=== PATIENT | male | born 1940 | race Hispanic/Latino ===

== ENCOUNTER 2018-01-20 23:13 | Inpatient (IN) | payer MEDICARE, BC ==
[2018-01-20] MEDS ORDERED: Sodium Chloride 0.9% 1,000 ML IV STA (23:38)
--- NOTE | 2018-01-20 23:43 | ED PDOC ---
Arrival/HPI - General Chief Complaint: Flu-like Symptoms Time Seen by Provider: 01/20/18 23:37 - History of Present Illness Narrative History of Present Illness (Text): 77 y/o M c PMHx HTN, asthma p/w fever x 1 day. Reports cough productive of clear /yellow sputum. Denies current dyspnea, body aches, nausea, vomiting, dysuria, abdominal pain, rash, recent travel. at home with cough as well. Past Medical History - Cardiac Hx Cardiac Arrhythmia: Yes - Pulmonary Hx Asthma: Yes - Musculoskeletal/Rheumatological Hx Falls: No Other/Comment: pt has dupuytren's syndrome and has had 8 sx's to both hands including bilateral hand sx's for trigger finger and bilateral carpal tunnel - Genitourinary/Gynecological Other/Comment: on flomax for frequency - Psychiatric Hx Depression: No Hx Emotional Abuse: No Hx Physical Abuse: No Hx Substance Use: No - Surgical History Hx Cholecystectomy: Yes Other/Comment: bilateral inguinal hernia sx's - Suicidal Assessment Feels Threatened In Home Enviroment: No Family/Social History Family/Social History: No Known Family HX Smoking Status: Former Smoker Hx Alcohol Use: Yes (social) Hx Substance Use: No Hx Substance Use Treatment: No Allergies/Home Meds Allergies/Adverse Reactions: Allergies No Known Allergies Allergy (Verified 04/13/13 09:44) Home Medications: Home Meds Medication Instructions Recorded Confirmed Carvedilol [Coreg] 6.25 mg PO BID 01/20/18 01/20/18 Review of Systems - Physician Review All systems were reviewed & negative as marked: Yes - Review of Systems Cardiovascular: absent: Chest Pain Gastrointestinal: absent: Vomiting Physical Exam - Physical Exam Narrative Physical Exam (Text): Gen: NAD Head: NC Eyes: No scleral icterus ENT: MMM. No pharyngeal erythema or exudates. Neck: Supple. No nuchal rigidity. Chest: No tenderness CV: Tachycardic Lungs: CTA b/l Abd: Soft, NT Back: No CVA tenderness Extremities: No swelling or tenderness Skin: No rash Neuro: Alert, no focal deficit Vital Signs Temp Pulse Resp BP Pulse Ox 01/21/18 03:49 99.2 F 96 H 95 H 107/53 L 100 01/21/18 02:48 99.6 F 98 H 18 126/60 96 01/21/18 02:13 100.0 F H 99 H 18 124/61 95 01/21/18 00:54 99.6 F 01/21/18 00:52 101.4 F H 101 H 12 127/72 97 01/20/18 23:54 102.9 F H 01/20/18 23:29 102.9 F H 116 H 21 116/90 97 Medical Decision Making ED Course and Treatment: EKG Sinus tachycardia, 123 bpm, no ST elevations, PACs CXR no acute disease. Patient with persistent fever and tachycardia, will admit for continued hydration, antibiotics. UA shows blood and moderate bacteria. Dr. Maxwell covering for Dr. Garcia accepts to his service. - Lab Interpretations Lab Results: 01/20/18 23:45 01/20/18 23:45 Lab Results 01/21/18 00:13: Urine Color Yellow, Urine Appearance Clear, Urine pH 5.5, Ur Specific [place] 1.025, Urine Protein Trace H, Urine Glucose (UA) Negative, Urine Ketones Trace H, Urine Blood Moderate H, Urine Nitrate Negative, Urine Bilirubin Negative, Urine Urobilinogen 0.2, Ur Leukocyte Esterase Negative, Urine RBC 5 - 10, Urine WBC 0 - 2, Ur Epithelial Cells 3 - 4, Urine Bacteria Mod , Urine Other Mucus 01/20/18 23:45: Sodium 131 L, Chloride 97 L, Potassium 4.4, Carbon Dioxide 26, Anion Gap 14, BUN 15, Creatinine 0.9, Est GFR ( Amer) > 60, Est GFR (Non- Af Amer) > 60, Random Glucose 136 H, Calcium 9.2, Total Bilirubin 0.9, AST 35, ALT 30, Alkaline Phosphatase 63, Total Protein 7.4, Albumin 4.1, Globulin 3.3, Albumin/Globulin Ratio 1.2 01/20/18 23:45: pO2 38, VBG pH 7.39, VBG pCO2 47.0, VBG HCO3 28.5 H, VBG Total CO2 29.9 H, VBG O2 Sat (Calc) 80.1 H, VBG Base Excess 2.8 H, VBG Potassium 4.4, Sodium 132.0, Chloride 99.0, Glucose 140 H, Lactate 1.3, FiO2 21.0, Venous Blood Potassium 4.4 01/20/18 23:45: WBC 13.9 H, RBC 4.01, Hgb 12.8 L, Hct 36.8 L, MCV 91.8, MCH 31.9 , MCHC 34.8, RDW 12.8, Plt Count 181, MPV 10.2, Gran % 79.5 H, Lymph % (Auto) 9.1 L, [place] % (Auto) 10.8 H, Eos % (Auto) 0.4 L, Baso % (Auto) 0.2, Gran # 11.08 H, Lymph # (Auto) 1.3, [place] # (Auto) 1.5 H, Eos # (Auto) 0.1, Baso # (Auto ) 0.03 01/20/18 23:36: Influenza Typ A,B (EIA) Negative for flu a/b - RAD Interpretation Radiology Orders: 01/20/18 23:38 CHEST TWO VIEWS (PA/LAT) [RAD] Stat - Medication Orders Current Medication Orders: Ceftriaxone Sodium (Rocephin 1 Gram Ivpb) 1 gm in 100 mls @ 100 mls/hr IVPB STAT STA PRN Reason: Protocol Stop: 01/21/18 04:46 Last Admin: 01/21/18 03:59 Dose: 100 mls/hr eMAR Start Stop Document 01/21/18 03:59 RG (Rec: 01/21/18 04:03 [id number] Intravenous Solution Start Date 01/21/18 Start Time 03:59 Discontinued Medications Acetaminophen (Tylenol 325mg Tab) 650 mg PO STAT STA Stop: 01/20/18 23:39 Last Admin: 01/20/18 23:54 Dose: 650 mg MAR Pain/Vitals Document 01/20/18 23:54 RG (Rec: 01/20/18 23:55 [id number] Vitals Temperature (97.6 F-99.6 F) 102.9 F Temperature Source Oral Re-Assess: MAR Pain/Vitals Document 01/21/18 00:54 RG (Rec: 01/21/18 03:51 [id number]) Vitals Temperature (97.6 F-99.6 F) 99.6 F Temperature Source Oral Sodium Chloride (Sodium Chloride 0.9%) 1,000 mls @ 999 mls/hr IV .Q1H1M STA Stop: 01/21/18 00:38 Last Admin: 01/20/18 23:56 Dose: 999 mls/hr eMAR Start Stop Document 01/20/18 23:56 (Rec: 01/20/18 23:59 [id number] Intravenous Solution Start Date 01/20/18 Start Time 23:56 End Date 01/21/18 End time 00:57 Total Infusion Time 61 Ketorolac Tromethamine (Toradol) 30 mg IVP STAT STA Stop: 01/20/18 23:39 Last Admin: 01/20/18 23:55 Dose: 30 mg MAR Pain Assessment Document 01/20/18 23:55 (Rec: 01/20/18 23:56 [id number] Pain Reassessment Is this a pain reassessment? Yes IVP Administration Document 01/20/18 23:55 (Rec: 01/20/18 23:56 [id number] Charges for Administration # of IVP Administrations 1 Re-Assess: MAR Pain Assessment Document 01/21/18 00:55 (Rec: 01/21/18 04:03 [id number]) Pain Reassessment Is this a pain reassessment? Yes Sleep Is patient sleeping during reassessment? No Presence of Pain Presence of Pain No Disposition/Present on Arrival - Present on Arrival Any Indicators Present on Arrival: No History of DVT/PE: No History of Uncontrolled Diabetes: No Urinary Catheter: No History of Decub. Ulcer: No History Surgical Site Infection Following: None - Disposition Have Diagnosis and Disposition been Completed?: Yes Diagnosis: Sepsis, URI (upper respiratory infection), UTI (urinary tract infection) Disposition: HOSPITALIZED Disposition Time: 02:09 Patient Plan: Admission Condition: FAIR Discharge Instructions (ExitCare): Sepsis (ED) Referrals: Chago Garcia MD [Primary Care Provider] - Follow up with primary Forms: [employer] (S[place]i)
[2018-01-21 00:08] LABS: VENOUS BLOOD GAS BASE EXCESS 2.8 mmol/L (0.0-2.0); VENOUS BLOOD GAS PO2 38 mm/Hg (30-55); VENOUS BLOOD PH 7.39 (7.32-7.43)
[2018-01-21 00:15] LABS: BASO # 0.03 K/mm3 (0.0-2.0); BASO % 0.2 % (0.0-3.0); EOS # 0.1 (0.0-0.7); EOS % 0.4 % (1.5-5.0); GRAN # 11.08 (1.4-6.5); GRAN % 79.5 % (50.0-68.0); HEMOGLOBIN 12.8 g/dL (14.0-18.0); LYMPH # 1.3 (1.2-3.4); LYMPH % 9.1 % (22.0-35.0); MEAN CELL VOLUME 91.8 fl (80.0-105.0); MEAN CORPUSCULAR HEMOGLOBIN 31.9 pg (25.0-35.0); MEAN CORPUSCULAR HGB CONC 34.8 g/dl (31.0-37.0); MEAN PLATELET VOLUME 10.2 fl (7.0-11.0); MONO # 1.5 (0.1-0.6); MONO % 10.8 % (1.0-6.0); RBC 4.01 10^6/uL (3.5-6.1); RED CELL DISTRIBUTION WIDTH 12.8 % (11.5-14.5); WHITE BLOOD COUNT 13.9 10^3/ul (4.5-11.0)
[2018-01-21 00:20] LABS: ALB/GLOB RATIO 1.2 (1.1-1.8); ALBUMIN 4.1 g/dL (3.0-4.8); CALCIUM 9.2 mg/dL (8.4-10.5); GFR AFRICAN-AMERICAN > 60; GFR NON-AFRICAN AMERICAN > 60
[2018-01-21 00:32] LABS: ALT/SGPT 30 U/L (7-56); AST/SGOT 35 U/L (17-59); BLOOD UREA NITROGEN 15 mg/dL (7-21)
[2018-01-21 01:05] LABS: PH,URINE 5.5 (4.7-8.0); URINE BILIRUBIN NEGATIVE (NEGATIVE); URINE BLOOD MODERATE (NEGATIVE); URINE GLUCOSE (UA) NEGATIVE (NEGATIVE); URINE LEUKOCYTE ESTERASE NEGATIVE Leu/uL (NEGATIVE); URINE PROTEIN TRACE mg/dL (<30 mg/dL); URINE UROBILINOGEN 0.2 E.U./dL (<1 E.U./dL)
[2018-01-21 01:11] LABS: URINE APPEARANCE CLEAR (CLEAR); URINE COLOR YELLOW (YELLOW)
[2018-01-21 02:02] LABS: URINE BACTERIA MOD (NEG); URINE WBC 0 - 2 /hpf (0-6)
[2018-01-21] MEDS ORDERED: cefTRIAXone 1 gm 1 GM/100 ML BAG IVPB STA (03:47)
[2018-01-21] MEDS: Sodium Chloride 0.9% 1,000 ML IV SCH ×2 (07:09→17:35)
[2018-01-21] MEDS: Albuterol-Ipratrop 3 mg / 0.5 (3 ml) UD IH SCH ×3 (07:21→20:39)
[2018-01-21 08:50] VITALS: BMI 28.2
--- NOTE | 2018-01-21 09:02 | RAD ---
HISTORY: cough COMPARISON: Comparison is made with 04/13/2013 TECHNIQUE: Chest PA and lateral FINDINGS: LUNGS: No active pulmonary disease. PLEURA: No significant pleural effusion identified. No pneumothorax apparent. CARDIOVASCULAR: Normal. OSSEOUS STRUCTURES: No significant abnormalities. VISUALIZED UPPER ABDOMEN: Normal. OTHER FINDINGS: None. IMPRESSION: No radiographic evidence of pneumonia.
--- NOTE | 2018-01-21 10:42 | CARD ---
APPROVED REPORT EKG Measurement Heart [id number] <Conclusion> Sinus tachycardia with premature atrial complexes (new)
--- NOTE | 2018-01-21 15:35 | PN ---
DATE: PULMONARY CONSULTATION SUBJECTIVE: Mr. Damri Villa is a 77-year-old gentleman with a standing history of asthma. The patient is followed by Dr. Pickett in [facility]. The patient is taking Flovent daily and ProAir intermittently as necessary from his private soap chipper. Several days ago, the patient began complaining of shortness of breath. He was coughing up discolored phlegm. There was no blood. He had no chest pain. There was wheezing noted. He was admitted to the hospital for further evaluation and treatment of his asthma with concurrent respiratory tract infection. PAST HISTORY: As stated above, past history of asthma. No additional history obtained. SOCIAL HISTORY: The patient was a superintendent of schools. No occupational exposure, no travel history. Had been a smoker in the past, stopped in 2001 (to my knowledge, underlying COPD is not available). FAMILY HISTORY: Asthma, coronary artery disease. REVIEW OF SYSTEMS: Shortness of breath, productive cough, and wheeze noted. All other systems negative. PHYSICAL EXAMINATION: GENERAL: Mr. Villa is comfortable, in no acute distress. VITAL SIGNS: Stable. Blood pressure 128/84, heart rate 84, respiratory rate 16, O2 sat 96%. HEENT: Normocephalic, atraumatic. Eyes: PERRLA. EOMs full. Conjunctivae are pink. NECK: Supple. No JVD. No lymphadenopathy. No bruit . CARDIAC: Regular rhythm. S1 and S2 without murmur, gallop, or rub. RESPIRATORY: Increased AP diameter, prolonged expiratory phase. Scattered rhonchi through both lung haro slightly noted. GI: Soft. Bowel sounds normoactive without mass, guarding, rebound, or organomegaly. EXTREMITIES: Reveal no clubbing, cyanosis, or edema. There is no Mattie sign. LYMPH NODES: Lymphadenopathy is not present. MENTAL STATUS/NEUROLOGY: Awake, alert, and oriented. No focal findings. SKIN: Dry; intact. No rashes LABORATORY STUDIES: WBC 13.9, hemoglobin 12.8, hematocrit 36.8. Blood gas; pH 7.39, pCO2 of 47, pO2 of 80 on room air. Chemistry: Sodium 131, potassium 4.4, chloride 97. Glucose 136. RADIOLOGY: Chest x-ray: Good aeration, no bony abnormalities. No pulmonary infiltrates. IMPRESSION: 1. Acute bronchospasm. 2. Moderate chronic persistent asthma. 3. Cannot exclude underlying air trapping in chronic obstructive pulmonary disease. 4. Acute bronchitis. PLAN: Strongly suggest continuing bronchodilator therapy, adding inhaled corticosteroids. Vigorous antibiotic courses started by DILAN Galeas. We will need followup x-ray to make sure that there is no development of pneumonitis. Sputum evaluation should be done. We will follow closely with you and decide on the need for further intervention based on clinical status. Thank you for the opportunity to evaluate this patient. Cain Yoon MD MTDEryn
[2018-01-21] MEDS: Budesonide 0.5 mg/2 ml Inhal Susp UD IH SCH (20:40)
--- NOTE | 2018-01-21 21:04 | CT ---
EXAM: CT Chest Without Intravenous Contrast EXAM DATE/TIME: 01/21/2018 11:36 AM CLINICAL HISTORY: The patient age is 77 years old and is male; Signs and symptoms; Cough and fever; Symptoms not specified; Additional info: Fever cough negative cxr Facility exam id and description: Ct chests chest w/o contrast TECHNIQUE: Axial computed tomography images of the chest without intravenous contrast. All CT scans at this facility use one or more dose reduction techniques, viz.: automated exposure control; ma/kV adjustment per patient size (including targeted exams where dose is matched to indication; i.e. head); or iterative reconstruction technique. Coronal and sagittal reformatted images were created and reviewed. COMPARISON: CT - CHEST W/O CONTRAST 2017-11-15 13:03 FINDINGS: Lungs: Nodular consolidations and increased interstitial markings are visualized within the right lower lobe, new compared to the prior study. These findings are likely infectious or malignant in etiology. At the posterior right lung base, there is a consolidation measuring 2.6 x 0.9 cm. Reticulonodular densities are also visualized within the left lower lobe and right middle lobe, with progression. Within the right lower lobe, there is a new 7 mm nodule on series 4 image 55. On series 4 image 58 within the right lower lobe, there is a new 5 mm nodule. Pleural space: There is a small right pleural effusion, new compared to the prior study. Heart: No cardiomegaly. No significant pericardial effusion. Mediastinum: There is a small hiatal hernia. Thyroid: Within the left thyroid lobe, there is a 1.2 x 0.7 cm hypodense nodule. Bones/joints: Hypertrophic degenerative changes are noted within the spine. Vasculature: No thoracic aortic aneurysm. Lymph nodes: Scattered mediastinal lymph nodes are identified, some which are mildly enlarged. This is a progression. An enlarged subcarinal lymph node measures 1.6 x 1.3 cm. Evaluation for hilar lymphadenopathy is limited by the absence of intravenous contrast. Liver: There is a stable small hypodense lesion within the spleen measuring 9 mm. Within the central liver, a subcentimeter hypodense lesion is visualized, without progression. Pancreas: There is fatty infiltration of the pancreas. Other findings: Post cystectomy clips are visualized. IMPRESSION: 1. Nodular consolidations and increased interstitial markings are visualized within the right lower lobe, new compared to the prior study. These findings are likely infectious or malignant in etiology. Reticulonodular densities are also visualized within the left lower lobe and right middle lobe, with progression. A follow-up CT in 3 months and possible further evaluation with PET/CT are recommended. 2. Additional lung nodules are noted above. 3. Scattered mediastinal lymph nodes are identified, some which are mildly enlarged. This is a progression. 4. Within the left thyroid lobe, there is a 1.2 x 0.7 cm hypodense nodule. Nonemergent ultrasonography is recommended. 5. There is a small right pleural effusion, new compared to the prior study. 6. There is a stable small hypodense lesion within the spleen measuring 9 mm. Within the central liver, a subcentimeter hypodense lesion is visualized, without progression. 7. Incidental/non-acute findings are described above.
[2018-01-22] MEDS: Sodium Chloride 0.9% 1,000 ML IV SCH (03:00)
--- NOTE | 2018-01-22 03:11 | HP ---
CHIEF COMPLAINT AND HISTORY OF PRESENT ILLNESS: This is a 77-year-old male who is coming in to the hospital with complaints of fever. He was complaining of muscle aches. He was having productive cough with yellow sputum. He says, he was having seizures as well for the last day. He has a past medical history of asthma, hypertension. He has had pneumonia in the past according to him. He denies any headaches, any dizziness. No nausea. No vomiting. No weakness in the arms or the legs. No abdominal pain. No back pain. No dysuria, frequency. No nocturia. REVIEW OF SYMPTOMS: All other review of symptoms are within normal limits except that was mentioned. ALLERGIES: HE HAS NO KNOWN DRUG ALLERGIES. HOME MEDICATIONS: Coreg. PAST MEDICAL HISTORY: He has Dupuytren's contracture. SOCIAL HISTORY: He was a smoker, but quit many years ago. PAST SURGICAL HISTORY: Cholecystectomy. FAMILY HISTORY: Noncontributory. PHYSICAL EXAMINATION: VITAL SIGNS: Temperature is 103.8, pulse of 122, respirations 22, blood pressure is 150/84. Height is 6 feet 2. Weight is 220 pounds. BMI is 28.2. GENERAL: The patient lying in bed, uncomfortable, and in no acute distress. HEENT: Atraumatic and normocephalic. Anicteric sclerae. Moist mucosa. Grawn conjunctivae. No oral lesions. NECK: No JVD, anterior and posterior adenopathy, thyromegaly, or bruits. CARDIOVASCULAR: S1 and S2 regular. No murmur, rubs, or gallop. LUNGS: Good bilateral air entry, bilateral rhonchi. No wheezes or rales. ABDOMEN: Bowel sounds are positive. Soft, nontender and nondistended. No hepatosplenomegaly. No rebound and no guarding EXTREMITIES: No cyanosis, clubbing, or edema. NEUROLOGIC: No facial asymmetry. Tongue is midline. No uvula deviation. Power is 5/5 upper extremity and lower extremity. Sensation intact in upper extremity and lower extremity. PSYCHIATRIC: He is awake, alert and oriented x3. No anxiety or depression. He has normal affect. GENITOURINARY: No CVA tenderness. VASCULAR: 2+ pulses in the carotid pulses and pedal pulses. SKIN: No erythema or nodules SPINE: Shows normal curvature. LABORATORY DATA: White count of 13.9, hemoglobin is 12.8, platelet count is 181. His chemistry shows a sodium of 131, potassium is 4.4, creatinine is 0.9. Urine shows blood that is moderate, nitrites are negative, bilirubin is negative. Serology shows influenza is negative. EKG shows sinus tachycardia around 120s with PACs. Chest x-ray shows no evidence of pneumonia. ASSESSMENT: 1. Bronchitis, acute. 2. Acute chronic obstructive pulmonary disease. 3. Seizure. 4. Sepsis. 5. Tachycardia. PLAN: The patient has cough, congestion. He has an elevated white count. He is tachycardic. He has sepsis. He is going to be admitted to the hospital for further management. He was given IV Rocephin in the ER. I am concerned that the patient may have influenza. He has been started on Tamiflu, although the flu screening has been negative. He is going to be on Tylenol for his fevers. I will get Infectious Disease evaluation. He has been placed on IV fluids. He is going to have repeat blood work done. His blood cultures, urine cultures are pending. He has a CT of the chest that has been ordered. Benson Maxwell MD
[2018-01-22] MEDS: Budesonide 0.5 mg/2 ml Inhal Susp UD IH SCH ×2 (08:14→20:40)
[2018-01-22] MEDS: Albuterol-Ipratrop 3 mg / 0.5 (3 ml) UD IH SCH ×3 (08:14→20:40)
[2018-01-22] MEDS: Azithromycin 500MG/NS 250ml 500 MG/250 ML BAG IVPB SCH (09:33)
[2018-01-22] MEDS: cefTRIAXone 1 gm 1 GM/100 ML BAG IVPB SCH (11:45)
--- NOTE | 2018-01-22 14:50 | PN ---
DATE: 01/22/2018 PULMONARY PROGRESS NOTE LOCATION: Room 575, bed 1. SUBJECTIVE: The patient is feeling improved today. Cough is less. There is less expectoration. The expectorate is not as purulent as previously seen. He is doing better than yesterday. PHYSICAL EXAMINATION: GENERAL: He is resting comfortably in bed, no cough, no expectoration. VITAL SIGNS: Stable. HEENT: Normal. NECK: Supple. CHEST: Prolonged expiratory phase persists. Scattered rhonchi persists. No wheezing appreciated. ABDOMEN: Soft. EXTREMITIES: Reveal no clubbing, cyanosis or edema. NEUROLOGIC: Awake, alert, and oriented. LABORATORY DATA: No new laboratory studies are available as yet. CLINICAL IMPRESSION: 1. Acute bronchospasm in resolution. 2. Moderate persistent asthma. 3. Cannot exclude underlying air trapping with chronic obstructive pulmonary disease. 4. Acute bronchitis in resolution. PLAN: Continue bronchodilator therapy and antibiotics, slowly taper corticosteroids. Followup chest x-ray is pending. Strongly suggest that if the patient improves to have the pulmonary function study to look for underlying COPD, if so, LAMA should be instituted. We will defer to the patient's private grain combiner for further evaluation and treatment. Continue to monitor closely during this hospitalization. We will follow closely with you. Cain Yoon MD MTDD
--- NOTE | 2018-01-22 17:24 | PN ---
DATE: 01/22/2018 COVERAGE FOR: Chago Garcia MD SUBJECTIVE: The patient has no complaints of any chest pain. No shortness of breath. No headaches. PHYSICAL EXAMINATION: VITAL SIGNS: Temperature is 100, pulse of 113, blood pressure is 149/70, respirations 20. GENERAL: The patient is lying in bed, flat, comfortable. HEENT: No oral lesion. Anicteric sclerae. Moist mucosa. NECK: No JVD, adenopathy, or thyromegaly. CARDIOVASCULAR: S1 and S2, regular. No murmurs, rubs, or gallops. LUNGS: Clear to auscultation bilaterally. No wheeze, rales, or rhonchi. ABDOMEN: Bowel sounds are positive, soft, nontender and nondistended. EXTREMITIES: No cyanosis, clubbing or edema. LABORATORY DATA: White count of 13.9, hemoglobin 12.8. Creatinine is 0.9. CT of the chest done shows nodular consolidation, increased interstitial markings visualized within the right lower lobe, new compared to the prior study, there are reticulonodular densities that are seen in the left lower lobe with right middle lobe. ASSESSMENT: 1. Community-acquired pneumonia. 2. Reticulonodular densities in the left lower lobe and right middle lobe progression. 3. Sepsis. 4. Seizures. 5. Acute chronic obstructive pulmonary disease. 6. Tachycardia, improved. PLAN: The patient is currently comfortable. He does have improvement of his symptoms. His blood cultures have been negative. His fever has been improving. The patient is on Rocephin for antibiotics. He is on IV fluids. I will discontinue the patient's IV fluids at this point. He is on nebulizer treatment. The patient is on Tamiflu. I will also get pulmonary evaluation because of the abnormal chest x-ray. The patient is going to be seen by Dr. Tapia, I have asked him to evaluate the patient. Benson Maxwell MD
[2018-01-22] MEDS: guaiFENesin-Codeine 100-10mg/5ml Syrup (5 ml) UD PO PRN ×2 (17:56→22:15)
[2018-01-22 18:20] LABS: HEMOGLOBIN 11.2 g/dL (14.0-18.0); MEAN CELL VOLUME 93.2 fl (80.0-105.0); MEAN CORPUSCULAR HEMOGLOBIN 31.9 pg (25.0-35.0); MEAN CORPUSCULAR HGB CONC 34.3 g/dl (31.0-37.0); MEAN PLATELET VOLUME 10.1 fl (7.0-11.0); RBC 3.51 10^6/uL (3.5-6.1); RED CELL DISTRIBUTION WIDTH 13.3 % (11.5-14.5); WHITE BLOOD COUNT 9.1 10^3/ul (4.5-11.0)
--- NOTE | 2018-01-22 18:36 | PN ---
DATE: 01/22/2018 SUBJECTIVE: Patient is in bed, in no acute distress, nontoxic. He is doing much better. His temperature is on a downward trend. PHYSICAL EXAMINATION: VITAL SIGNS: On exam, temperature of 100.1, T max yesterday was 102 and blood pressure is 140/70, respiratory rate of 20, heart rate of 101. HEENT: Examination of HEENT is unremarkable. NECK: Supple. LUNGS: Have decreased breath sounds. HEART: Normal S1, S2. ABDOMEN: Soft, nontender. LABORATORY EXAMINATION: Reveals a white count of 13,900, hemoglobin of 12, platelets of 181. Chemistries reveals a BUN of 15, creatinine of 0.9, procalcitonin 0.05. Urinalysis is noted. Serology is noted. Microbiology reveals the blood cultures are no growth. Urine cultures are no growth. Sputum cultures are pending. The patient had a CAT scan of the chest which shows a nodular consolidations and increased interstitial markings as in the right lower lobe which is new compared to the CAT scan patient had in November and a followup CAT scan in 3 months is recommended and/or PET scan is recommended, additional lung nodules, scattered mediastinal lymph nodes, mildly enlarged, has a thyroid nodule. ASSESSMENT AND PLAN: A 77-year-old male with past medical history of , tobacco use, alcohol use and surgeries of cholecystectomy, admitted with severe sepsis with community-acquired pneumonia, hypoxia, tachycardia with negative blood cultures. The sputum culture is pending. On ceftriaxone and azithromycin and Tamiflu, although the serology for influenza is negative. We will follow closely with you. Pending final culture results and clinical response. Timmy Bennett MD
[2018-01-22] MEDS ORDERED: Albuterol-Ipratrop 3 mg / 0.5 (3 ml) UD IH PRN (21:34)
[2018-01-23] MEDS: guaiFENesin-Codeine 100-10mg/5ml Syrup (5 ml) UD PO PRN ×4 (02:46→23:51)
[2018-01-23] MEDS: Albuterol-Ipratrop 3 mg / 0.5 (3 ml) UD IH SCH ×3 (07:28→21:00)
[2018-01-23] MEDS: Budesonide 0.5 mg/2 ml Inhal Susp UD IH SCH ×2 (07:28→21:00)
[2018-01-23 07:46] LABS: HEMOGLOBIN 11.8 g/dL (14.0-18.0); MEAN CELL VOLUME 93.8 fl (80.0-105.0); MEAN CORPUSCULAR HEMOGLOBIN 31.8 pg (25.0-35.0); MEAN CORPUSCULAR HGB CONC 33.9 g/dl (31.0-37.0); MEAN PLATELET VOLUME 9.9 fl (7.0-11.0); RBC 3.71 10^6/uL (3.5-6.1); RED CELL DISTRIBUTION WIDTH 13.5 % (11.5-14.5); WHITE BLOOD COUNT 7.9 10^3/ul (4.5-11.0)
[2018-01-23 08:03] LABS: ALB/GLOB RATIO 1.1 (1.1-1.8); ALBUMIN 3.5 g/dL (3.0-4.8); ALT/SGPT 39 U/L (7-56); AST/SGOT 39 U/L (17-59); BLOOD UREA NITROGEN 9 mg/dL (7-21); CALCIUM 9.4 mg/dL (8.4-10.5); GFR AFRICAN-AMERICAN > 60; GFR NON-AFRICAN AMERICAN > 60
--- NOTE | 2018-01-23 08:46 | CON ---
DATE: 01/21/2018 LOCATION: The patient is seen in 575, bed 1. CHIEF COMPLAINT: Fever, cough, and shortness of breath times several days. HISTORY OF PRESENT ILLNESS: This is a 77-year-old male with a history of asthma, BPH, hypertension, and patient had an episode of atrial fibrillation years ago and history of hand surgery, cholecystectomy, bilateral inguinal hernia surgery with no known allergies, who was admitted with a diagnosis of sepsis and was found to have a temperature of 102 in the emergency room. Patient had been complaining of cough, which is productive of yellowish and viral colored sputum and shortness of breath. No chest pain. He does have chills. REVIEW OF SYSTEMS: Reveals no abdominal pain, diarrhea, or constipation. No bright red blood per rectum. No melena. No dysuria or frequency. No headaches. PAST MEDICAL HISTORY: Significant for asthma, history of atrial fibrillation in 2012, BPH, hypertension. PAST SURGICAL HISTORY: Significant for hand surgery, cholecystectomy, bilateral inguinal hernia surgery. ALLERGIES: PATIENT HAS NO KNOWN ALLERGIES. SOCIAL HISTORY: He is an ex-smoker, ex-alcohol user, and he has not had any travel history. MEDICATIONS AT HOME: Include Coreg, which is carvedilol at 6.25 mg p.o. b.i.d. PHYSICAL EXAMINATION: GENERAL: Patient is in bed, in no acute distress, and answering questions appropriately. VITAL SIGNS: Temperature of 102.8 with a heart rate of 122, respiratory rate of 24, and blood pressure is 107/53. Patient is saturating at 92% O2 saturation. HEENT: Unremarkable. Pupils are equal, round, and reactive to light and accommodation. Extraocular motion is intact. Conjunctiva is pink. Sclera is nonicteric. NECK: Supple. LUNGS: Have decreased breath sounds bibasilarly. HEART: Normal S1, S2. ABDOMEN: Soft, nontender. No organomegaly. No rebound. No guarding. No masses. LABORATORY EXAMIANTION: Reveals a white count of 13,900, hemoglobin of 12, platelets of 181. Blood gases are noted. Chemistries reveal a BUN of 15, creatinine of 0.9. Urinalysis is noted, 0 to 2 wbc's and moderate bacteria. Influenza serology is negative. Microbiology is pending. Patient's chest x-ray is reported to be negative. EKG shows a QTc of 412. Emergency room chart is reviewed by Dr. Mitchell Carver. ASSESSMENT AND PLAN: A 77-year-old male with history of asthma, history of atrial fibrillation in 2013, history of BPH, hypertension, admitted with temperature of 102.9, tachycardia, dyspnea, hypoxia. Although the chest x-ray is reported to be negative, examination is consistent with pulmonary findings with, 1. Severe sepsis with community-acquired pneumonia with hypoxia and we will treat the patient with ceftriaxone and Zithromax since the chest x-rays is reported to be negative. We will order a CAT scan of the chest, blood cultures, urine cultures, sputum cultures, urine for Legionella antigen, procalcitonin level, and treat the patient with ceftriaxone and azithromycin and order a CT of the chest and we will make further recommendations upon availability of initial results. We will follow closely with you. We will also had Tamiflu although the influenza serology is negative. We will follow closely with you. Timmy Bennett MD
--- NOTE | 2018-01-23 09:23 | PN ---
DATE: 01/23/2018 SUBJECTIVE: The patient appears comfortable this morning. He is not short of breath at rest. PHYSICAL EXAMINATION: VITAL SIGNS: Temperature is 98.1, pulse 85, respirations 18, blood pressure 129/75. Oxygen saturation on nasal cannula is 95%. HEENT: Normocephalic, atraumatic. No JVD. CARDIOVASCULAR: Systolic ejection murmur at the lower left sternal border. No S3 gallop. LUNGS: Crackles noted at the right base. Minimal bilateral rhonchi. No wheezing. EXTREMITIES: No clubbing, cyanosis, or edema. Calves are nontender to palpation. GASTROINTESTINAL: Abdomen is soft, nontender, and nondistended. Bowel sounds are positive. SKIN: No acute rash. NEUROLOGIC: Limited at the present time. IMPRESSION: 1. Right lower lobe pneumonia. 2. Sepsis syndrome. 3. Chronic obstructive pulmonary disease. 4. Mild anemia. PLAN: The patient appears comfortable this morning. He is not short of breath at rest. He does state to feeling much better overall. On physical exam, there is only mild bronchospasm noted. In addition, there is no significant alveolar-arterial gradient. I will continue the current nebulizer treatments and inhaled steroids for now. The patient remains on antibiotic therapy - as per Infectious Disease. Input by Dr. Bennett is noted. The temperatures are now resolving. The leukocytosis has fully resolved. Clinical status of the patient is significantly improved - compared to the initial presentation. The patient is followed closely by a private funeral service practitioner/embalmer (Dr. Marroquin)-- as an outpatient for many years.. I did tell the patient (this morning) that I'm advising a repeat CT scan - as an outpatient - for comparison. He fully agrees. I will discuss the above with the attending physician. Ozzie Tapia MD [facility]
[2018-01-23] MEDS: cefTRIAXone 1 gm 1 GM/100 ML BAG IVPB SCH (09:37)
[2018-01-23] MEDS: Azithromycin 500MG/NS 250ml 500 MG/250 ML BAG IVPB SCH (09:38)
--- NOTE | 2018-01-23 14:35 | CP.PCM.PN ---
Subjective - Date & Time of Evaluation Date of Evaluation: 01/23/18 Time of Evaluation: 11:10 - Subjective Subjective: Comfortable in bed, breathing better, cough is better, fever is trending down although he still had fever yesterday. Objective - Vital Signs/Intake and Output Vital Signs (last 24 hours): Temp Pulse Resp BP Pulse Ox 98.3 F 84 16 144/77 95 01/23/18 07:30 01/23/18 07:30 01/23/18 07:30 01/23/18 07:30 01/23/18 07:30 Intake and Output: 01/23/18 01/23/18 06:59 18:59 Intake Total 750 Balance 750 - Medications Medications: Current Medications Acetaminophen (Tylenol 325mg Tab) 650 mg PO Q4H PRN PRN Reason: Fever >100.4 F Last Admin: 01/22/18 17:14 Dose: 650 mg Albuterol/Ipratropium (Duoneb 3 Mg/0.5 Mg (3 Ml) Ud) 3 ml IH TIDRESP GAUTAM Last Admin: 01/23/18 13:19 Dose: 3 ml Albuterol/Ipratropium (Duoneb 3 Mg/0.5 Mg (3 Ml) Ud) 3 ml IH [id number] PRN PRN Reason: Shortness of Breath Budesonide (Pulmicort Respules) 0.5 mg IH BIDRESP GAUTAM Last Admin: 01/23/18 07:28 Dose: 0.5 mg Guaifenesin/Codeine Phosphate (Robitussin W/Codeine) 5 ml PO Q4H PRN PRN Reason: Cough and congestion Last Admin: 01/23/18 11:32 Dose: 5 ml Ceftriaxone Sodium (Rocephin 1 Gram Ivpb) 1 gm in 100 mls @ 100 mls/hr IVPB DAILY GAUTAM PRN Reason: Protocol Stop: 01/31/18 10:01 Last Admin: 01/23/18 09:37 Dose: 100 mls/hr Azithromycin (Zithromax 500mg In Ns) 500 mg in 250 mls @ 167 mls/hr IVPB DAILY GAUTAM PRN Reason: Protocol Stop: 01/31/18 10:01 Last Admin: 01/23/18 09:38 Dose: 167 mls/hr Oseltamivir Phosphate (Tamiflu Cap) 75 mg PO BID GAUTAM PRN Reason: Protocol Stop: 01/26/18 18:01 Last Admin: 01/23/18 09:37 Dose: 75 mg - Labs Labs: 01/23/18 07:20 01/23/18 07:20 - Constitutional Appears: Non-toxic, Chronically Ill - Head Exam Head Exam: NORMAL INSPECTION - ENT Exam ENT Exam: Mucous Membranes Moist - Neck Exam Neck Exam: absent: Meningismus - Respiratory Exam Respiratory Exam: Decreased Breath Sounds - Cardiovascular Exam Cardiovascular Exam: +S1, +S2 - GI/Abdominal Exam GI & Abdominal Exam: Soft. absent: Tenderness Assessment and Plan - Assessment and Plan (Free Text) Plan: Assessment severe sepsis due to right lower lobe community-acquired pneumonia R/O Influenza history of polysubstance abuse S/P cholecystectomy Plan Continue Rocephin, Zithromax and Tamiflu (day 2) to complete 5-7 days of therapy will continue to monitor clinically
[2018-01-24] MEDS ORDERED: Oxymetazoline 0.05% Nasal Spray (30 ml) NS STA (03:11)
--- NOTE | 2018-01-24 03:27 | CP.PCM.PN ---
Subjective - Date & Time of Evaluation Date of Evaluation: 01/24/18 Time of Evaluation: 03:23 - Subjective Subjective: SEEN at BEDSIDE. S: Requested something for dry nose. Has no other complaints now. I had ordered Afrin. He states that Afrin would make his nose raw stock drier tender. States that he got some tube and a swab, he applied it to nasal mucosa and it helped. He allegedly had received K Y Jelly. Pertinent medical record was reviewed. O: Last Vital Signs 3 Temp 100.1 F H 01/23/18 14:00 Pulse 97 H 01/23/18 14:00 Resp 20 01/23/18 14:00 BP 109/67 01/23/18 14:00 Pulse Ox 93 L 01/23/18 14:00 Awake, alert, not in distress. Nasal mucosa dryness + LUNGS: Normal breathing pattern. A:Dry nose. P:Afrin nasal spray- Not accepted by patient. K-Y Jelly ordered. Objective - Vital Signs/Intake and Output Vital Signs (last 24 hours): Temp Pulse Resp BP Pulse Ox 100.1 F H 97 H 20 109/67 93 L 01/23/18 14:00 01/23/18 14:00 01/23/18 14:00 01/23/18 14:00 01/23/18 14:00 Intake and Output: 01/23/18 01/24/18 18:59 06:59 Intake Total 600 450 Output Total 300 Balance 300 450 - Medications Medications: Current Medications Acetaminophen (Tylenol 325mg Tab) 650 mg PO Q4H PRN PRN Reason: Fever >100.4 F Last Admin: 01/22/18 17:14 Dose: 650 mg Albuterol/Ipratropium (Duoneb 3 Mg/0.5 Mg (3 Ml) Ud) 3 ml IH TIDRESP GAUTAM Last Admin: 01/23/18 21:00 Dose: 3 ml Albuterol/Ipratropium (Duoneb 3 Mg/0.5 Mg (3 Ml) Ud) 3 ml IH [id number] PRN PRN Reason: Shortness of Breath Budesonide (Pulmicort Respules) 0.5 mg IH BIDRESP GAUTAM Last Admin: 01/23/18 21:00 Dose: 0.5 mg Guaifenesin/Codeine Phosphate (Robitussin W/Codeine) 5 ml PO Q4H PRN PRN Reason: Cough and congestion Last Admin: 01/23/18 23:51 Dose: 5 ml Ceftriaxone Sodium (Rocephin 1 Gram Ivpb) 1 gm in 100 mls @ 100 mls/hr IVPB DAILY GAUTAM PRN Reason: Protocol Stop: 01/31/18 10:01 Last Admin: 01/23/18 09:37 Dose: 100 mls/hr Azithromycin (Zithromax 500mg In Ns) 500 mg in 250 mls @ 167 mls/hr IVPB DAILY GAUTAM PRN Reason: Protocol Stop: 01/31/18 10:01 Last Admin: 01/23/18 09:38 Dose: 167 mls/hr Oseltamivir Phosphate (Tamiflu Cap) 75 mg PO BID GAUTAM PRN Reason: Protocol Stop: 01/26/18 18:01 Last Admin: 01/23/18 17:40 Dose: 75 mg - Labs Labs: 01/23/18 07:20 01/23/18 07:20
--- NOTE | 2018-01-24 05:30 | PN ---
DATE: SUBJECTIVE: A 77-year-old white male with history of bronchiectasis and asthma for many years, quit smoking in 1977, history of possible exposure to 07/18. Patient has a history of mild hypertension, CAD. Patient was admitted with pneumonia and abnormal CAT scan consistent with some adenopathy and nodular presence in the lower lung haro. Patient also had an elevated white count of 13,000, which has resolved; normal today, down to 7.8. H and H are stable. His temperature is 98.3 today. He had been as high as 101 last night. He is on bronchodilator therapy, inhaled steroids. He has no growth in blood cultures so far. Gram stain of sputum is pending. He is on IV antibiotics. He is feeling somewhat better. He still has a productive cough. PHYSICAL EXAMINATION: GENERAL: Shows a well-developed diaphoretic white male in minimal respiratory distress. HEENT: Essentially within normal limits. HEART: Regular sinus rhythm. No murmurs. ABDOMEN: Soft. CHEST: Shows rhonchi at both bases with some scattered inspiratory rales and wheezing bilaterally. EXTREMITIES: Without any cyanosis, clubbing, or edema. PLAN: Continue bronchodilation, inhaled steroids, and antibiotics. Follow up cultures and repeat CAT scan as indicated as an outpatient. Chago Garcia MD
[2018-01-24] MEDS: guaiFENesin-Codeine 100-10mg/5ml Syrup (5 ml) UD PO PRN ×3 (06:29→20:45)
[2018-01-24] MEDS: Albuterol-Ipratrop 3 mg / 0.5 (3 ml) UD IH SCH ×3 (07:31→19:36)
[2018-01-24] MEDS: Budesonide 0.5 mg/2 ml Inhal Susp UD IH SCH ×2 (07:32→19:36)
[2018-01-24] MEDS: Azithromycin 500MG/NS 250ml 500 MG/250 ML BAG IVPB SCH (09:33)
[2018-01-24] MEDS: cefTRIAXone 1 gm 1 GM/100 ML BAG IVPB SCH (09:34)
--- NOTE | 2018-01-24 09:42 | PN ---
DATE: 01/24/2018 PULMONARY NOTE SUBJECTIVE: The patient appears comfortable this morning. He is not short of breath at rest. PHYSICAL EXAMINATION VITAL SIGNS: Temperature is 98.3, pulse is 87, respirations 20, blood pressure 145/80. Oxygen saturation on room air is 96%. HEENT: Normocephalic, atraumatic. No JVD. CARDIOVASCULAR: Systolic ejection murmur at the lower left sternal border. No S3 gallop. LUNGS: Crackles noted at the right base. Less rhonchi. No wheezing. EXTREMITIES: No clubbing, cyanosis or edema. Calves are nontender to palpation. GI: Abdomen is soft, nontender and nondistended. Bowel sounds are positive. SKIN: No acute rash. NEUROLOGIC: Limited at the present time. IMPRESSION: 1. Right lower lobe pneumonia. 2. Sepsis syndrome. 3. Chronic obstructive pulmonary disease. 4. Mild anemia. PLAN: The patient appears comfortable this morning. He is not short of breath at rest. He does state to feeling much better overall. On physical exam, his bronchospasm continues to resolve. In addition, the oxygen saturation on room air is now 96%. I will continue the current nebulizer treatments and inhaled steroids for now. I would continue with the antibiotic coverage as per Infectious Disease. Input by Dr. James is noted. Temperatures have now fully resolved. The leukocytosis has also fully resolved. Clinical status of the patient is significantly improved - compared to the initial presentation. The patient is reminded to be out of bed as much as possible. I will discuss the above with the attending physician. Ozzie Tapia MD [facility]
[2018-01-25] MEDS: Budesonide 0.5 mg/2 ml Inhal Susp UD IH SCH (07:45)
[2018-01-25] MEDS: Albuterol-Ipratrop 3 mg / 0.5 (3 ml) UD IH SCH ×3 (07:45→21:00)
--- NOTE | 2018-01-25 09:40 | PN ---
DATE: 01/25/2018 PULMONARY NOTE SUBJECTIVE: The patient appears very comfortable this morning. He is not short of breath at rest. PHYSICAL EXAMINATION VITAL SIGNS: Temperature is 98.5, pulse is 75, respirations 18/20, blood pressure 135/73. Oxygen saturation on room air is 95%. HEENT: Normocephalic, atraumatic. No JVD. CARDIOVASCULAR: Systolic ejection murmur at the lower left sternal border. No S3 gallop. LUNGS: Less crackles noted at the right base. Less rhonchi. No wheezing. EXTREMITIES: No clubbing, cyanosis or edema. Calves are nontender to palpation. GI: Abdomen is soft, nontender and nondistended. Bowel sounds are positive. SKIN: No acute rash. NEUROLOGIC: Limited at the present time. IMPRESSION: 1. Right lower lobe pneumonia. 2. Sepsis syndrome. 3. Chronic obstructive pulmonary disease. 4. Mild anemia. PLAN: The patient appears very comfortable this morning. He is not short of breath at rest. He does state to feeling much better overall. On physical exam, his bronchospasm continues to resolve. In addition, there is no significant alveolar-arterial gradient. I will continue the current nebulizer treatments and inhaled steroids for now. The patient remains on antibiotic therapy - as per Infectious Disease. The temperatures have resolved. The leukocytosis has resolved. Clinical status of the patient is significantly improved overall. The patient is advised to be out of bed as much as possible. He is for discharge in the near future. I will discuss the above with the attending physician. Ozzie Tapia MD [facility]
[2018-01-25] MEDS: cefTRIAXone 1 gm 1 GM/100 ML BAG IVPB SCH (09:54)
[2018-01-25] MEDS: Azithromycin 500MG/NS 250ml 500 MG/250 ML BAG IVPB SCH (09:55)
--- NOTE | 2018-01-25 14:02 | PN ---
DATE: 01/24/2018 SUBJECTIVE: A 77-year-old white male admitted with pneumonia and exacerbation of bronchiectasis. The patient had had a temperature of 101 the night before. He is afebrile this morning. White count has dropped. He feels better. He still has rhonchi and rales and bronchospasm, but feeling slightly improved. He is having some sinus and nasal congestion, otherwise unremarkable. IMPRESSION: The patient pledged to continue bronchodilators, steroids, antibiotics, and has been seen by Dr. Tapia and also by Dr. James. We are going to discharge when he is afebrile for 24 hours. Chago Garcia MD
[2018-01-25 17:58] VITALS: RESP 20
--- NOTE | 2018-01-25 18:00 | CP.PCM.PN ---
Subjective - Date & Time of Evaluation Date of Evaluation: 01/24/18 Time of Evaluation: 11:55 - Subjective Subjective: Breathing better, no fevers, not in distress. Objective - Vital Signs/Intake and Output Vital Signs (last 24 hours): Temp Pulse Resp BP Pulse Ox 98.3 F 87 22 145/80 96 01/24/18 07:38 01/24/18 09:32 01/24/18 07:38 01/24/18 09:32 01/24/18 07:38 Intake and Output: 01/24/18 01/24/18 06:59 18:59 Intake Total 690 Balance 690 - Medications Medications: Current Medications Acetaminophen (Tylenol 325mg Tab) 650 mg PO Q4H PRN PRN Reason: Fever >100.4 F Last Admin: 01/22/18 17:14 Dose: 650 mg Albuterol/Ipratropium (Duoneb 3 Mg/0.5 Mg (3 Ml) Ud) 3 ml IH TIDRESP GAUTAM Last Admin: 01/24/18 07:31 Dose: 3 ml Albuterol/Ipratropium (Duoneb 3 Mg/0.5 Mg (3 Ml) Ud) 3 ml IH [id number] PRN PRN Reason: Shortness of Breath Budesonide (Pulmicort Respules) 0.5 mg IH BIDRESP GAUTAM Last Admin: 01/24/18 07:32 Dose: 0.5 mg Carvedilol (Coreg) 6.25 mg PO BID GAUTAM Last Admin: 01/24/18 09:32 Dose: 6.25 mg Guaifenesin/Codeine Phosphate (Robitussin W/Codeine) 5 ml PO Q4H PRN PRN Reason: Cough and congestion Last Admin: 01/24/18 06:29 Dose: 5 ml Ceftriaxone Sodium (Rocephin 1 Gram Ivpb) 1 gm in 100 mls @ 100 mls/hr IVPB DAILY GAUTAM PRN Reason: Protocol Stop: 01/31/18 10:01 Last Admin: 01/24/18 09:34 Dose: 100 mls/hr Azithromycin (Zithromax 500mg In Ns) 500 mg in 250 mls @ 167 mls/hr IVPB DAILY GAUTAM PRN Reason: Protocol Stop: 01/31/18 10:01 Last Admin: 01/24/18 09:33 Dose: 167 mls/hr Oseltamivir Phosphate (Tamiflu Cap) 75 mg PO BID GAUTAM PRN Reason: Protocol Stop: 01/26/18 18:01 Last Admin: 01/24/18 09:32 Dose: 75 mg - Labs Labs: 01/23/18 07:20 01/23/18 07:20 - Constitutional Appears: Non-toxic - Head Exam Head Exam: NORMAL INSPECTION - ENT Exam ENT Exam: Mucous Membranes Moist - Neck Exam Neck Exam: absent: Meningismus - Respiratory Exam Respiratory Exam: Decreased Breath Sounds - Cardiovascular Exam Cardiovascular Exam: +S1, +S2 - GI/Abdominal Exam GI & Abdominal Exam: Soft. absent: Tenderness Assessment and Plan - Assessment and Plan (Free Text) Plan: Assessment severe sepsis due to right lower lobe community-acquired pneumonia R/O Influenza history of polysubstance abuse S/P cholecystectomy Plan Continue Rocephin, Zithromax and Tamiflu (day 4) to complete 5-7 days of therapy will continue to monitor clinically
--- NOTE | 2018-01-25 18:52 | PN ---
DATE: SUBJECTIVE: A 77-year-old white male, admitted to the hospital with bilateral pneumonia, bronchospasm, history of bronchiectasis. The patient is markedly improved today. PHYSICAL EXAMINATION: VITAL SIGNS: He is afebrile, 98.6; blood pressure 135/70. White count 7 to 7.9. GENERAL: The patient has less cough, less sputum production, less shortness of breath. He is less diaphoretic. CHEST: Feels some scattered rhonchi and rales, both bases, but markedly improved. There is no evidence of bronchospasm today. HEART: Regular sinus rhythm. ABDOMEN: Benign. EXTREMITIES: No cyanosis, clubbing or edema. PLAN: To continue present course of therapy and discharge home in 24 hours if afebrile. Chago Garcia MD
[2018-01-26 08:17] VITALS: TEMP 98.6; O2SAT 98
[2018-01-26] MEDS: Albuterol-Ipratrop 3 mg / 0.5 (3 ml) UD IH SCH (08:32)
[2018-01-26] MEDS: Budesonide 0.5 mg/2 ml Inhal Susp UD IH SCH (08:32)
[2018-01-26] MEDS: Azithromycin 500MG/NS 250ml 500 MG/250 ML BAG IVPB SCH (09:28)
[2018-01-26 09:34] VITALS: BP 135/74; PULSE 80
[2018-01-26] MEDS: cefTRIAXone 1 gm 1 GM/100 ML BAG IVPB SCH (11:17)
--- NOTE | 2018-01-26 11:43 | PN ---
DATE: 01/26/2018 SUBJECTIVE: The patient appears very comfortable this morning. He is not short of breath at rest. PHYSICAL EXAMINATION VITAL SIGNS: Temperature is 98.6, pulse is 72, respirations 18, blood pressure 136/74. Oxygen saturation on room air is 98%. HEENT: Normocephalic, atraumatic. No JVD. CARDIOVASCULAR: Systolic ejection murmur at the lower left sternal border. No S3 gallop. LUNGS: Minimal/less crackles - right base. Very minimal/less rhonchi. No wheezing. EXTREMITIES: No clubbing, cyanosis or edema. Calves are nontender to palpation. GI: Abdomen is soft, nontender and nondistended. Bowel sounds are positive. SKIN: No acute rash. NEUROLOGIC: Limited at the present time. IMPRESSION: 1. Right lower lobe pneumonia. 2. Sepsis syndrome. 3. Chronic obstructive pulmonary disease. 4. Mild anemia. PLAN: The patient appears very comfortable this morning. He is not short of breath at rest. He does state to feeling much, much better overall. On physical exam, his bronchospasm continues to resolve. In addition, the oxygen saturation on room air is 98%. I will continue the current nebulizer treatments and inhaled steroids for now. I would continue with the antibiotic coverage as per Infectious Disease. Input by Dr. James is noted. The temperatures have resolved. The leukocytosis has also resolved. Culture results are negative. Perhaps we can change to oral antibiotic therapy at this point in time. Clinical status of the patient is significantly improved - compared to the initial presentation. The patient will be discharged home in the very near future. He will follow up with his private fur dry cleaner - Dr. Pickett. He was again reminded to obtain an outpatient CAT scan - in the near future - for comparison. He fully agrees. I will discuss the above with the attending physician. Ozzie Tapia MD [facility]
--- NOTE | 2018-01-26 16:36 | CP.PCM.PN ---
Subjective - Date & Time of Evaluation Date of Evaluation: 01/26/18 Time of Evaluation: 12:30 - Subjective Subjective: Breathing much better, no fevers, not in distress, afebrile. Objective - Vital Signs/Intake and Output Vital Signs (last 24 hours): Temp Pulse Resp BP Pulse Ox 98.6 F 80 20 135/74 98 01/26/18 06:00 01/26/18 09:28 01/26/18 06:00 01/26/18 09:28 01/26/18 06:00 Intake and Output: 01/26/18 01/26/18 06:59 18:59 Intake Total 720 780 Balance 720 780 - Labs Labs: 01/23/18 07:20 01/23/18 07:20 - Constitutional Appears: Non-toxic - Head Exam Head Exam: NORMAL INSPECTION - ENT Exam ENT Exam: Mucous Membranes Moist - Neck Exam Neck Exam: absent: Meningismus - Respiratory Exam Respiratory Exam: Decreased Breath Sounds - Cardiovascular Exam Cardiovascular Exam: +S1, +S2 - GI/Abdominal Exam GI & Abdominal Exam: Soft. absent: Tenderness Assessment and Plan - Assessment and Plan (Free Text) Plan: Assessment severe sepsis due to right lower lobe community-acquired pneumonia R/O Influenza history of polysubstance abuse S/P cholecystectomy Plan Continue Rocephin, Zithromax day 6 to complete 5-7 days of therapy S/P 5 days of Tamiflu
== END 2018-01-26 15:15 | disposition home or self-care (01) | DRG 871 ==
LOC: ED 23:13 → ERH 01-21 04:24 → 5RSO 01-21 05:41
PROVIDERS: ADMIT Internal Medicine Nephrology; ATTEND Internal Medicine
DX: A41.9 Sepsis, unspecified organism (principal); J18.9 Pneumonia, unspecified organism; I48.91 Unspecified atrial fibrillation; D64.9 Anemia, unspecified; N39.0 Urinary tract infection, site not specified; R56.9 Unspecified convulsions; J44.0 Chronic obstructive pulmonary disease with (acute) lower respiratory infection; I10 Essential (primary) hypertension; Z86.79 Personal history of other diseases of the circulatory system; J06.9 Acute upper respiratory infection, unspecified; J20.9 Acute bronchitis, unspecified; J45.40 Moderate persistent asthma, uncomplicated; N40.0 Benign prostatic hyperplasia without lower urinary tract symptoms; Z87.01 Personal history of pneumonia (recurrent); Z87.891 Personal history of nicotine dependence; Z90.49 Acquired absence of other specified parts of digestive tract